=== PATIENT | male | born 1955 | race Caucasian/White ===

== ENCOUNTER 2023-11-11 14:41 | Emergency (ER) | payer MEDICARE, BC, SELFPAY ==
[2023-11-11 15:18] VITALS: BP 124/78; PULSE 75; RESP 18; TEMP 37.1; O2SAT 97; BMI 27.4
--- NOTE | 2023-11-11 16:32 | ED.LOWEXIN ---
HPI - Extremity Injury (Lower) General Chief Complaint: Extremity Pain/Injury, Lower Stated Complaint: L Achilles injury Time Seen by Provider: 11/11/23 14:58 History of Present Illness HPI Narrative: This 68-year-old male comes in with an injury to his left lower extremity. He was playing softball and reports sudden sharp pain in his Achilles area of the left leg. He states that he thought somebody hit him with a ball. He is not reporting any pain currently and is able to ambulate on his heel but is unable to dorsiflex his left foot. Related Data Home Medications Medication Instructions Recorded Confirmed atorvastatin 20 mg tablet 20 mg PO DAILY 11/11/23 11/11/23 celecoxib 200 mg capsule 200 mg PO DAILY pain 11/11/23 11/11/23 fluoxetine 40 mg capsule 40 mg PO QAM 11/11/23 11/11/23 Allergies Allergy/AdvReac Type Severity Reaction Status Date / Time No Known Drug Allergies Allergy Verified 11/11/23 15:21 Review of Systems Status of ROS: Reports: 10 or more systems reviewed and unremarkable except as noted in History and below Narrative: Constitutional: No fevers, no weight gain or loss. Eyes: No discharge. No vision changes. HENT: No congestion, no sore throat, no ear pain. Cardiovascular: No chest pain, no palpitations. Respiratory: No shortness of breath, no wheezes, no cough. Gastrointestinal: No abdominal pain, no vomiting, no diarrhea. Genitourinary: No dysuria, no hematuria. Musculoskeletal: Injury of the left Achilles tendon as described above. Skin: No rashes, no pruritis. Neurological: No dizziness, weakness, sensory change, speech change. Endo/Heme/Allergies: No bruising or bleeding. No polydipsia. Pysch: no suicidality, no anxiety, no insomnia. All other systems reviewed and are negative. Exam Narrative: Exam Narrative: Constitutional: Well-developed, well-nourished, no acute distress. HEENT: Normocephalic, atraumatic. Neck: Normal range of motion. Nontender. Supple. Heart: Regular. No murmurs. Normal rate. Intact distal pulses. Lungs: Clear to auscultation. No chest discomfort. No wheezes, rhonchi, or rales. Abdomen: Normal bowel sounds. Nontender. No rebound tenderness. Genitalia: Deferred. Back: No midline tenderness. Normal range of motion. Extremities: There is a palpable step-off at the left Achilles tendon typical of a rupture. Rea's test is positive in that squeezing the calf muscles do not translate into any activity of his foot or toes. He is unable to plantarflex his left foot. Skin: Intact. No rash. Warm. No erythema or pallor. Neurologic: No altered sensation. No weakness. Alert and oriented. Psychiatric: No suicidality. No anxiety or depression. No insomnia. Nursing notes and vitals signs are reviewed. Const: Vital Signs, click to edit/add: Vital Signs - 24 hr 11/11/23 15:18 Temperature 98.8 F Pulse Rate [Right Pulse Oximeter] 75 Respiratory Rate 18 Blood Pressure [Ri ght Upper Arm] 124/78 Pulse Oximetry 97 Oxygen Delivery Me thod Room Air Course Vital Signs Vital signs: Initial Vital Signs Temperature 98.8 F 11/11/23 15:18 Temperature Source Temporal Artery Scan 11/11/23 15:18 Pulse Rate 75 11/11/23 15:18 Respiratory Rate 18 11/11/23 15:18 Blood Pressure 124/78 11/11/23 15:18 Blood Pressure Mean 93 11/11/23 15:18 Blood Pressure Position Sitting 11/11/23 15:18 Pulse Oximetry 97 11/11/23 15:18 Oxygen Delivery Method Room Air 11/11/23 15:18 Vital Signs Temperature 98.8 F 11/11/23 15:18 Pulse Rate 75 11/11/23 15:18 Respiratory Rate 18 11/11/23 15:18 Blood Pressure 124/78 11/11/23 15:18 Pulse Oximetry 97 11/11/23 15:18 Oxygen Delivery Method Room Air 11/11/23 15:18 Temperature 98.8 F 11/11/23 15:18 Pulse Rate 75 11/11/23 15:18 Respiratory Rate 18 11/11/23 15:18 Blood Pressure 124/78 11/11/23 15:18 Pulse Oximetry 97 11/11/23 15:18 Oxygen Delivery Method Room Air 11/11/23 15:18 MDM - Extremity Injury (Lower) MDM Narrative Medical decision making narrative: This patient comes in with an injury to his left lower extremity that is because of a ruptured Achilles tendon. There is a definite palpable step-off in this area typical of rupture. The patient is not complaining of any pain. He received a cam walker boot and is instructed use crutches. He states that he has crutches at home. He will need to follow-up with orthopedic clinic for surgical repair. Discharge Plan Discharge Clinical Impression: Achilles tendon rupture Patient Disposition: Home, Self-Care Condition: Unchanged Additional Instructions: Wear walking boot and use crutches for ambulating. Follow-up with orthopedic clinic for ongoing management. Call [phone] for appointment. Prescriptions: No Action celecoxib 200 mg capsule 200 mg PO DAILY fluoxetine 40 mg capsule 40 mg PO QAM atorvastatin 20 mg tablet 20 mg PO DAILY Follow Up/Referrals: Nikko Almazan MD [Primary Care Provider] - Stand Alone Forms: [facility] Info Instructions
== END 2023-11-11 16:45 | disposition home or self-care (01) ==
LOC: ED 16:39
PROVIDERS: Emergency Provider Emergency Medicine Emergency Medical Services; PCP Surgery
DX: S86.002A Unspecified injury of left Achilles tendon, initial encounter (principal); Y93.64 Activity, baseball
CPT/HCPCS: 99283; 99284

== ENCOUNTER 2023-11-14 06:53 | Day surgery (SDC) | payer MEDICARE, BC, SELFPAY ==
[2023-11-14] VITALS (15 sets, daily range): BP systolic 96–152; BP diastolic 67–97; PULSE 47–65; RESP 12–16; TEMP 36.1–36.6; O2SAT 95–99; BMI 27.4
--- NOTE | 2023-11-14 06:59 | W.PM.H&PU ---
History & Physical Update History & Physical Update H&P Reviewed and patient assessed: No changes noted
[2023-11-14] MEDS: LACTATED RINGERS 1000 ML 1,000 ML 100 ML IV (08:03)
[2023-11-14] MEDS: SODIUM CHLORIDE 0.9 % (FLUSH) 10 ML SYRINGE IVF (08:03)
[2023-11-14] MEDS: MIDAZOLAM HCL 1 MG/ML inj IVP (08:37)
[2023-11-14] MEDS: fentaNYL 100 MCG/2 ML inj IVP (08:37)
--- NOTE | 2023-11-14 08:55 | SUR.PREOP ---
TIME?OUT:?0836 PT/RN/MDA?VERIFICATION?OF?SURGICAL?SITE,?PROCEDURE,?AND?CONSENT OBTAINED?PRIOR?TO?INVASIVE?PROCEDURE. all in agreement.
[2023-11-14] MEDS: CEFAZOLIN 2 GM in 0.9 % SODIUM CHLORIDE Mini-bag 100 ML IVPB (09:00)
--- NOTE | 2023-11-14 09:40 | P.NB_ITS ---
Nerve Block Nerve Block Time Seen by Provider: 08:43 Date Seen: 11/14/23 Type of block requested by surgeon for post-operative analgesia: popliteal Side: left Time out performed: Yes Verification of patient name: Yes Verification of date of : Yes Site marking: site marked Name of person performing procedure: Live Continuous monitoring Was continuous monitoring of O2 sat, B/P, personnel monitor, recorded every 15 minutes?: Yes Procedure Checklist: sterile prep, needles and gloves Ultrasound guided. Images saved: Yes Medications given in 5ml increments after negative aspiration: Ropivicaine %: 0.5 mL: 20 Needle gauge: 22 Patient tolerated procedure well: Yes Additional comments: Needle noted adjacent to nerve Block Charges Block Charge (with Pro Fee): Sciatic Nerve Use of Ultrasound Machine for Block: Yes- US Guidance/pain block
--- NOTE | 2023-11-14 09:40 | W.ANESCHARGE ---
Anesthesia Charges Start Date/Time Anesthesia Start Date: 11/14/23 Anesthesia Start Time: 08:52 Stop Date/Time Anesthesia Stop Date: 11/14/23 Anesthesia Stop Time: 10:26
--- NOTE | 2023-11-14 10:07 | P.ORPRC_ITS ---
Procedure Note Date of procedure: 11/14/23 Procedure: PREOPERATIVE DIAGNOSES: 1. Right Achilles tendon rupture, acute, closed POSTOPERATIVE DIAGNOSES: 1. Right Achilles tendon rupture, acute, closed NAME OF OPERATION: 1. Right Achilles tendon repair using PARS (percutaneous) device. SURGEON: Abhijit Madrigal MD OVERHEAD CRANE TECHNICIAN: Vida Sanchez PA-C; Of note, an research program assistant was critical for this case to aide in patient positioning, leg manipulation, tissue retraction, closure, patient safety & splinting. ANESTHESIA: Spinal plus popliteal block EBL: 5 mL IMPLANTS: Arthrex 3.9 mm BioComposite SwiveLock suture anchor (x2). TOURNIQUET: 45 minutes at 300 torr-thigh tourniquet INDICATIONS: The patient is a pleasant 68-year-old male male who sustained a right Achilles tendon rupture while playing softball. He thought someone had thrown a softball to the back of his heel. He did not have significant pain. He did have difficulty walking and certainly running. Exam showed palpable gap in the Achilles tendon as well as positive Rea sign indicating ruptured Achilles. Given his desire to remain physically active and get back to softball participation, surgery was indicated. FINDINGS: Closed, achilles tendon rupture approximately 4 cm from the distal insertion site. 2 cm palpable gap noted. Hemorrhage was encountered after penetrating the paratenon. The Achilles indeed had migrated proximally. PROCEDURE: Following a thorough discussion of risks, benefits, and alternatives, consent was obtained and the left Achilles was marked. The patient was brought to the operating room and placed supine on the operating table. Induction of anesthesia was undertaken. Appropriate time out was performed identifying proper patient, site and procedure. 1 g IV Ancef was administered within 1 hour of incision preoperatively. The right lower extremity was prepped and draped in the appropriate sterile fashion using ChloraPrep prep after the patient had been positioned prone with all bone prominences well padded, and soft anatomic prominences free from pressure. The limb was exsanguinated and the tourniquet inflated. A transverse incision was made overlying the palpable gap in the Achilles tendon which ended up being approximately 4 cm proximal to the Achilles insertion on the posterior calcaneus. Sharp incision through skin and subcutaneous tissue, while protecting any crossing neurologic structures, was performed allowing the paratenon to be identified. This was also divided transversely, and indeed hemorrhage was encountered. The tendon ends were identified, and freshen. The tendon was also freed from adhesions proximally circumferentially. Following this, the PARS device was inserted within the paratenon, and around the tendon itself. 7 different needles/sutures were passed according to the technique izaiah torrez. #2 and 5 suture were looped underneath and through the locking cross stitches accordingly, and these were passed. The sutures were tugged on and found have an excellent control of the proximal Achilles tendon stump. Attention was then to the calcaneus. 2 small stab incisions were made medial and lateral to the convexity to the calcaneus posteriorly. Sharp incision through skin down to bone and hemostat to clear off the periosteum allowed us to drill, tap, and localized the planned anchors for the Achilles repair and a knotless fashion. The sutures were then passed through the distal tendon stump with the banana suture Lasso which came up through the tendon itself within the paratenon distally. After passing sutures, the foot was placed in maximum plantar flexion, and the sutures were secured into the drilled and tapped holes with 4.75 mm BioComposite SwiveLock suture anchor. This had excellent bite. The wound was thoroughly irrigated normal saline, and closure performed in layered fashion with #0 Vicryl for the paratenon, #2 Vicryl for subcutaneous, and 4-0 Statafix for subcuticular closure. Dermabond was applied, dressing applied, and a posterior splint applied with the foot in maximum plantar flexion. The patient was woken by anesthesia and transferred to PACU in stable condition. PLAN: 1. Elevate operative extremity. 2. Encouraged ice. 3. Oxycodone for pain as needed. 4. Toe-touch weight-bearing operative extremity 5. Follow up with PA visit in 10-14 days for splint removal and wound check. Transition to boot with heel lift and weightbear as tolerated at that time.
--- NOTE | 2023-11-14 10:25 | W.ANESCHARGE ---
Anesthesia Charges Start Date/Time Anesthesia Start Date: 11/14/23 Anesthesia Start Time: 08:52 Stop Date/Time Anesthesia Stop Date: 11/14/23 Anesthesia Stop Time: 10:26
== END 2023-11-14 12:29 | disposition home or self-care (01) ==
LOC: OR 06:54
PROVIDERS: PCP Surgery; Visit Provider Orthopaedic Surgery Sports Medicine
PROC: (CPT 27650; principal; 2023-11-14 08:45)
DX: S86.012A Strain of left Achilles tendon, initial encounter (principal); G89.18 Other acute postprocedural pain; M62.562 Muscle wasting and atrophy, not elsewhere classified, left lower leg
CPT/HCPCS: 27650; 01472; 64445; 76942; A4580; C1713; J0690; J2250; J2704; J2795; J3010; J3490; J7120

== ENCOUNTER 2024-02-20 09:00 | Outpatient (RCR) | payer MEDICARE, BC, SELFPAY ==
--- NOTE | 2023-11-30 11:57 | PT.OPEX ---
PT [place] Outpatient Eval PT [facility] Outpatient Eval Start: 11/30/23 07:27 Freq: Status: Active Protocol: Document 11/30/23 07:28 FITZ (Rec: 11/30/23 11:55 FITZ [id number]) E-signed By Manuel Talbot DPT Physical Therapy Outpatient Evaluation Insurance Information Recert Due Date 02/23/24 Insurance Name Medicare B Medical Diagnosis left PARS Achilles repair Treating Diagnosis gait abnormality muscle weakness left ankle pain/stiffness Referring MD Abhijit Madrigal Subjective Subjective Aaron comes into clinic today 2.5 weeks out of L Achilles repair DOS 11/14/23. Had a follow up last week where he was able to progress into a cam boot WBAT with crutch assist as needed. Currently has [address] Feels pretty good overall, not dealing with much in terms of pain, minimal NT symptoms. Did play catching in softball game along with swinging bat lightly last sunday. Pain Comments 0/10 Current Work Status Retired Precautions Treatment Precautions/Contraindications 3 wedges used. He may progressively remove wedges as he tolerates; do not remove a wedge if there is significant tension around the Achilles. He will likely be down to no wedges in 2 weeks if not sooner as patient has reasonable ankle position today. Weight bear as tolerated, crutches for assistance as needed. Weight Bearing Status Weight Bear as Tolerated Objective Other/Pertinent Objective FOOT ALIGNMENT/GAIT ambulates in step to pattern with decreased stride length and increased pace. ANKLE ROM PF: R-47 L-10 degrees with gravity assist DF: R-11 L- lacking 8 degree INversion: R- 30L-17 EVersion: R-27 L- 10 LE MMT Deferred on surgical leg due to precautions , WNL on R Functional Test Performed & Score FAOS(11/30/23) Assessment Assessment/Impression POST-OP Patient presents with signs and symptoms consistent with diagnosis of L Achilles repair , s/p2.5 week post operative. Rehab potential is good. Pineda impairments include: decreased ROM and strength of the extremity, poor balance and compensatory gait patterning, pain/limitations with functional activities such as squatting, walking, and climbing stairs. Skilled PT is required to address these pineda impairments and to provide and progress with an appropriate home exercise program. Plan of Care Rehabilitation Potential Good Physical Therapy Goals GOALS Pt will be independent with HEP within 20-24 weeks to allow for independence and continued improvement past formal therapy Patient will report or demonstrate the ability to have 4+/5 strength in all knee and ankle planes for household and recreational activity within 20-24 weeks. Patient will demonstrate/ report ability to walk for >60 minutes with pain level <1/10 , to allow for community and household ambulation within 20 -24 weeks Pt will score 85-90% on FAOS objective measure within 20-24 weeks to demonstrate functional improvements in daily living, pain symptoms, and functional independence . Coordination/Communication With Referral Source Treatment Plan/Direct Interventions Gait Training,Joint Mobilization,Manual Therapy, Neuromuscular Re-ed,Self-Care/ Home Management,Therapeutic Activities,Therapeutic Exercises Frequency/Duration 1-2 visits a week for 20-24 weeks Patient Will Be Discharged From Therapy Completion of LTG(s), Independent w/HEP, Independently Progressing Evaluation Billing Untimed Code Treatment Minutes 20 Complexity Low Certification Information Initial Certification Date 11/30/23 Ending Certification Date 02/28/24 Provider Signature Required Yes Provider Signature Shows Agreement With POC & Medical Necessity Physician NPI Number Write NPI# Here Physician Comment/Change : Physician Signature & Date Requested Please Sign/Date Here
--- NOTE | 2024-02-13 09:41 | PT.OPDNX ---
PT [facility] Outpatient Daily Note requires signatrue progress note PT [facility] Outpatient Daily Note Start: 11/30/23 07:27 Freq: Status: Active Protocol: Document 02/13/24 07:12 FITZ (Rec: 02/13/24 09:40 FITZ [email or web address]) E-signed By Manuel Talbot DPT PT OP Daily Progress Note Visit Information Note Type Daily Note,Recert/Progress Note Visit Number 10 Insurance Information Recert Due Date 05/13/24 Insurance Name Medicare B Medical Diagnosis left PARS Achilles repair Treating Diagnosis gait abnormality muscle weakness left ankle pain/stiffness Referring MD Abhijit Madrigal Subjective Subjective Aaron states he is feeling great, has been busy with his softball this week so has done less hep. Pain Comments 0/10 Precautions Treatment Precautions/Contraindications 3 wedges used. He may progressively remove wedges as he tolerates; do not remove a wedge if there is significant tension around the Achilles. He will likely be down to no wedges in 2 weeks if not sooner as patient has reasonable ankle position today. Weight bear as tolerated, crutches for assistance as needed. Weight Bearing Status Weight Bear as Tolerated Home Exercise Home Exercise Comments Access Code: [email or web address] URL: [email or web address] Date: 11/30/2023 Prepared by: Manuel Talbot Objective Other/Pertinent Objective FOOT ALIGNMENT/GAIT increased weight shift onto R leg, decreased control , ANKLE ROM WNL no pain LE MMT heel raises double leg- can perform 20 with decreasing arc of motion after 12-15 reps, mild weight shift heel raise single leg- unable to perform Dorsiflexion/heel walk: L /5 INV: RL /5 MALIK: R /5 L/5 Great Toe Extension: R/5 L/5 Functional Test Performed & Score FAOS(02/13/24) -94% Patient Instructed in Risks/Benefits Yes Therapeutic Exercise Therapeutic Exercise Minutes (minutes) 40 Therapeutic Exercise: To Restore recumbent bike x 8 min Functional Status dl heel raise x 20 KB heel raise seated #26 3x 20 SL heel raise on leg press #30 x 20 bridge with heel raises x 15 gastroc stretch Treatment Minutes Untimed Code Treatment Minutes 5 Timed Code Treatment Minutes 40 Total Treatment Time 45 Billing Units Therapeutic Exercise Units 3 Assessment/Impression Assessment/Impression Patient is a 69 year old male that presents with L Achilles repair. Patient reports 95% improvement with skilled physical therapy services. Patient's FAOS scored 94% . Patient has shown improvement in PT demonstrating decreased pain, increased range of motion, increased strength, and increased tolerance to activity. Patient continues to present with decreased strength, and decreased endurance to activity. Patient would benefit from continued skilled PT services to address these issues and to maximize function. Plan of Care Physical Therapy Goals GOALS Pt will be independent with HEP within 20-24 weeks to allow for independence and continued improvement past formal therapy Patient will report or demonstrate the ability to have 4+/5 strength in all knee and ankle planes for household and recreational activity within 20-24 weeks. Patient will demonstrate/ report ability to walk for >60 minutes with pain level <1/10 , to allow for community and household ambulation within 20 -24 weeks -met Pt will score 85-90% on FAOS objective measure within 20-24 weeks to demonstrate functional improvements in daily living, pain symptoms, and functional independence . - met Daily Plan of Care Continue per POC Discharge Note Date of First Visit for Therapy 11/30/23 Initial Primary Functional Limitations walking standing softball Initial Pain Level 0/10
== END 2024-06-02 15:57 | disposition home or self-care (01) ==
PROVIDERS: PCP Surgery; Visit Provider Orthopaedic Surgery Sports Medicine
DX: Z98.890 Other specified postprocedural states (principal); R26.9 Unspecified abnormalities of gait and mobility; M62.81 Muscle weakness (generalized); M25.572 Pain in left ankle and joints of left foot; M25.672 Stiffness of left ankle, not elsewhere classified; Z51.89 Encounter for other specified aftercare
CPT/HCPCS: 97110; 97161